=== PATIENT | female | born 1930 | race Native Hawaiian/Other Pacific Islander ===

== ENCOUNTER 2020-01-27 19:29 | Emergency (ER) | payer OTHER ==
[~2020-01-27] VITALS: Ht 152.4 cm; Wt 54.4 kg
[2020-01-27] MEDS ORDERED: AMLODIPINE BESYLATE PO (19:58)
[2020-01-27] MEDS ORDERED: VITAMIN D1000 UNIT PO (19:58)
[2020-01-27] MEDS ORDERED: FURO20TA67 PO (19:59)
[2020-01-27] MEDS ORDERED: CARV25TA PO (19:59)
[2020-01-27 20:33] LABS: PLATELET COUNT 157 K/uL (152-353)
[2020-01-27 20:38] LABS: SODIUM 140 mmol/L (136-145)
[2020-01-27 23:17] VITALS: BP 186/69; TEMP 99.1
== END 2020-01-27 23:17 | disposition home or self-care (01) ==
LOC: ED 19:29
DX: R10.84 Generalized abdominal pain (principal); K59.09 Other constipation; Z20.828 Contact with and (suspected) exposure to other viral communicable diseases
CPT/HCPCS: 36415; 43754; 80053; 81000; 84484; 85027; 87635; 93005; 99283; G2023; U00003

== ENCOUNTER 2020-04-15 09:02 | Emergency (ER) | payer OTHER ==
[~2020-04-15] VITALS: Ht 152.4 cm; Wt 51.7 kg
[~2020-04-15 09:02] MED LIST: AMLODIPINE BESYLATE PO; CARV25TA PO; FURO20TA67 PO; VITAMIN D1000 UNIT PO
[2020-04-15 10:03] LABS: PLATELET COUNT 165 K/uL (152-353); POTASSIUM 3.6 mmol/L (3.6-5.2)
[2020-04-15 13:35] VITALS: BP 160/67; TEMP 98.4
== END 2020-04-15 13:59 | disposition home or self-care (01) ==
LOC: ED 09:02
PROVIDERS: Emergency Medicine
DX: R10.84 Generalized abdominal pain (principal); K59.09 Other constipation
CPT/HCPCS: 80053; 81000; 82150; 83690; 85027; 99283